=== PATIENT | male | born 1975 | race Caucasian/White ===

== ENCOUNTER 2025-01-22 14:26 | Emergency (ER) | payer OTHER, SELFPAY ==
[2025-01-22 14:27] VITALS: BP 172/114; PULSE 80; RESP 18; TEMP 36.7; O2SAT 97
--- NOTE | 2025-01-22 14:57 | ED.WOUNDLAC ---
HPI - Wound/Laceration General Chief Complaint: Wound/Laceration Stated Complaint: laceration Time Seen by Provider: 01/22/25 14:47 Source: patient Mode of arrival: ambulatory Limitations: no limitations History of Present Illness HPI narrative: this is a 49-year-old male who presents after had an injury with a chainsaw to the distal end of palmar surface of his right index finger causing a laceration and avulsion injury has good range of motion and currently no bleeding no numbness or tingling. Onset (ago): hour(s) Extremity Location: Right: hand ( laceration and avulsion injury to index finger) Place: home Patient tetanus UTD: No ( Declined tetanus) Context: accidental Related Data Allergies Allergy/AdvReac Type Severity Reaction Status Date / Time No Known Allergies Allergy Verified 01/22/25 14:34 Review of Systems Review of Systems: All systems reviewed & are unremarkable except as noted in HPI and below PMFSH Past Medical History Medical History Patient denies medical problems Exam Const: General: healthy appearing, no acute distress and alert Nutritional Appearance: well nourished Orientation/consciousness: patient oriented x3 Resp: Effort & Inspection: normal respiratory effort Auscultation: clear to auscultation bilaterally Cardio: Rate: regular rate Rhythm: regular rhythm Skin: Wounds: wounds noted Neuro: General: patient oriented x3, moves all extremities and no meningeal signs Course Course Emergency Course: area was irrigated and Dermabond placed on the distal end of his right palmar surface of his index finger. Patient declined tetanus vaccine. Vital Signs Vital signs: Vital Signs Temperature 36.7 C 01/22/25 14:27 Pulse Rate 80 01/22/25 14:27 Respiratory Rate 18 01/22/25 14:27 Blood Pressure 172/114 H 01/22/25 14:27 Pulse Oximetry 97 01/22/25 14:27 Oxygen Delivery Room Air 01/22/25 14:27 Temperature 36.7 C 01/22/25 14:27 Pulse Rate 80 01/22/25 14:27 Respiratory Rate 18 01/22/25 14:27 Blood Pressure 172/114 H 01/22/25 14:27 Pulse Oximetry 97 01/22/25 14:27 Oxygen Delivery Room Air 01/22/25 14:27 Procedures Laceration Laceration 1: Date: 01/22/25 Time: 15:00 Site: hand ( Right index finger) Side (If applicable): right Size (cm): 2 Pre-repair: irrigated extensively ====== Skin Level ====== Skin layer closed with: dermabond ====== Subcutaneous Layer ====== ====== Muscle Layer ====== ====== Tendon Layer ====== Critical Care Time Critical Care Time Critical Care Time: No Discharge Plan Discharge Clinical Impression: Laceration, Avulsion of skin Patient Disposition: Home, Self-Care Condition: Stable Instructions: Antibiotic Form, Laceration (ED), Skin Avulsion (ED) Additional Instructions: advised follow-up with primary care physician if symptoms persist or worsen. Patient Language: Portuguese Follow-up/Referrals: UNKNOWN,DOCTOR [Primary Care Provider] - Time of Disposition: 15:01
--- OUTSIDE RECORDS SUMMARY | 2025-01-22 15:12 | XMS_ITS | Encounter Summary ---
Author Organization [facility] Address [facility] [place] [address] Care Team Providers Care Fuel Management Handler Name Role Phone Jose García MD Primary Care Provider Encounter Details Date Type Department Care Team (Late st Contact Info) Description 04/24/2019 Abstract SFL CONVERSION [address] [address] , Generic Conversion, Social History Tobacco Use Types Packs/Day Years Used Date Smoking Tobacco: Never Assessed Sex and Gender Information Value Date Recorded Sex Assigned at Not on file Legal Sex Male 5:51 PM DOCKWORKER Gender Identity Not on file Sexual Orientation Not on file documented as of this encounter Plan of Treatment Not on file documented as of this encounter Visit Diagnoses Not on filedocumented in this encounter Additional Health Concerns Infection Onset Date Last Indicated Resolved Time COVID-19 Rule Out 11/21/2024 11/21/2024 11/21/2024 2:50 PM DOCKWORKER documented as of this encounter Care Teams Fuel Management Handler Relationship Specialty Start Date End Date Jose García MD [address] [facility] [address] [place] [address] PCP - General 04/01/21 documented as of this encounter
--- OUTSIDE RECORDS SUMMARY | 2025-01-22 15:12 | XMS_ITS | Clinical Summary ---
Author Organization [facility] [email or web address] Address [address] [facility] [place] [address] Care Team Providers Care Burlap Bag Sewer Name Role Phone Tex Odom MD Primary Care Provider [phone] Source Comments [facility] [email or web address],non-owned Affiliates and Associated Physician Practices is amultiple site organization consisting of ambulatory clinics and hospital sitesin [place], [place], [place] and [place]. This disclosure is being madepursuant to the Care Everywhere program and may not contain all information available regarding this patient. Last updated 18.[facility] [email or web address] Allergies No known active allergies Medications * Be aware that medications may not be up to date on this document. Alwaysverify current medications with the patient. Medication Sig Dispensed Refills Start Date End Date Status cyclobenzaprine (FLEXERIL) 10 MG tablet Take 1 Tab by mouth 3 times daily as needed for Muscle Spasms. 90 Tab 0 09/26/2011 Active naproxen (NAPROSYN) 500 MG tablet Take 1 Tab by mouth 2 times daily. 180 Tab 3 09/26/2011 Active Active Problems No known active problems Family History Relation Name Status Comments Father over dose Mother Alive Sister Alive Social History Tobacco Use Types Packs/Day Years Used Date Smoking Tobacco: Never Alcohol Use Standard Drinks/Week Comments Yes 0 (1 standard drink = 0.6 oz pur e alcohol) Sex and Gender Information Value Date Recorded Sex Assigned at Not on file Gender Identity Not on file Sexual Orientation Not on file Last Filed Vital Signs Vital Sign Reading Time Taken Comments Blood Pressure 110/70 09/26/2011 9:37 AM SHRIMP PEELER Pulse 60 09/26/2011 9:37 AM SHRIMP PEELER Temperature 36.4 C (97.6 F) 09/26/2011 9:37 AM SHRIMP PEELER Respiratory Rate 20 09/26/2011 9:37 AM SHRIMP PEELER Oxygen Saturation - - Inhaled Oxygen Concentration - - Weight 92.7 kg (204 lb 6.4 oz) 09/26/2011 9:37 A M SHRIMP PEELER Height 182.9 cm (6') 09/26/2011 9:37 AM SHRIMP PEELER Body Mass Index 27.72 09/26/2011 9:37 AM SHRIMP PEELER Plan of Treatment Health Maintenance Due Date Last Done Comments COLOGUARD (AGES 45-75) - COL ON CA SCREENING 1976 COLON MONITORING 1976 COLONOSCOPY - COLON CA SCREENING 1976 CT COLONOGRAPHY - COLON CA SCREENING 1975 Colorectal Cancer Screening 1975 FIT - COLON CA SCREENING 1976 FLEX SIG - COLON CA SCREENING 1976 LIPID TESTING 1976 HIV SCREENING 1991 HEPATITIS C SCREENING 10/21/1994 DTAP/TDAP/TD VACCINES (1 - Tdap) 1995 HEPATITIS B VACCINE (1 of 3 - 19+ 3-dose series) 1995 COVID-19 VACCINE (1 - 2023-2 5 season) 2024 INFLUENZA VACCINE (#1) 2024 DEPRESSION SCREENING 11/17/2024 ZOSTER VACCINE (1 of 2) 2026 HIB VACCINE Aged Out No longer eligi ble based on patient's age to complete this topic HPV VACCINE Aged Out No longer eligi ble based on patient's age to complete this topic MENINGOCOCCAL (Group B) VACCINE Aged Out No longer eligible based on patient's age to complete this topic MENINGOCOCCAL VACCINE Aged Out No jesika caesar eligible based on patient's age to complete this topic PNEUMOCOCCAL VACCINE Aged Out No long er eligible based on patient's age to complete this topic Care Teams Burlap Bag Sewer Relationship Specialty Start Date End Date Tex Odom MD [address] [place] [address] PCP - General 10/08/11
--- OUTSIDE RECORDS SUMMARY | 2025-01-22 15:12 | XMS_ITS ---
Author Organization [facility] [employer] [facility] Address [address] [place] [address] Care Team Providers Care Bank Vault Clerk Name Role Phone Frank Draper Primary Care Provider REASON FOR VISIT Refills MEDICATIONS Medication SIG (Take, Route, Frequency, Duration) Notes Start Date End Date Status Amphetamine-Dextroamphetami ne 15 MG TAKE ONE TABLET BY MOUTH TWICE A DAY 09/23/2024 Active Naproxen 500 MG 1 tablet with food o r milk as needed Orally every 12 hrs for 90 days 07/04/2023 Active valACYclovir HCl 500 MG 1 tablet Orally Once a day for 90 days Active Encounters Encounter Location Date Provider Diagnosis [address] [address] 09/23/2024 Frank Bonny Back pain M54.9 ; HS V infection B00.9 and Attention deficit hyperactivity disorder (ADHD), predominantly inattentive type F90.0 ASSESSMENTS Encounter Date Diagnosis Assessment Notes Treatment Notes Treatment Clinical Notes Section Notes 09/23/2024 Back pain (ICD-10 - M54.9) 09/23/2024 HSV infection (ICD-10 - B00.9) 09/23/2024 Attention deficit hyperactivity disorder (ADHD), predominantly inattentive type (ICD-10 - F90.0) PLAN OF TREATMENT Medication Medication Name Sig Start Date Stop Date Notes Amphetamine-Dextroamphetamin e 15 MG TAKE ONE TABLET BY MOUTH TWICE A DAY 09/23/2024 Naproxen 500 MG 1 tablet with food o r milk as needed Orally every 12 hrs for 90 days 07/04/2023 valACYclovir HCl 500 MG 1 tablet Orally Once a day for 90 days Progress Notes * Malgorzata OLIVIERDOB:1975 ( 48 yo M)Acc No.[id number]:09/23/2024 Patient: Malgorzata OLIVIER :1975 Age:48 Y Sex:Male Address:[address] [place] [address] , [place] [address] * Refills Refill Naproxen Tablet, 500 MG, Orally, 180 Tablet, 1 tablet with food or milk as needed, every 12 hrs, 90 days, Refills=0 Refill valACYclovir HCl Tablet, 500 MG, Orally, 90 Tablet, 1 tablet, Once a day, 90 days, Refills=0 Refill Amphetamine-Dextroamphetamine Tablet, 15 MG, 60 Tablet, TAKE ONE TABLET BY MOUTH TWICE A DAY, Refills=0 * true * Date:
--- OUTSIDE RECORDS SUMMARY | 2025-01-22 15:12 | XMS_ITS ---
Author Organization [facility] [employer] [facility] Address [address] [place] [address] Care Team Providers Care Broke Handler Name Role Phone Frank Draper Primary Care Provider REASON FOR VISIT Refills Encounters Encounter Location Date Provider Diagnosis [address] [address] 09/20/2024 Frank Draper PLAN OF TREATMENT No Information Progress Notes * Malgorzata YANEZDOB:1975 ( 48 yo M)Acc No.[id number]:09/20/2024 Patient: Malgorzata YANEZ :1975 Age:48 Y Sex:Male [address] [place] [address] * true * Date:
--- OUTSIDE RECORDS SUMMARY | 2025-01-22 15:12 | XMS_ITS | Clinical Summary ---
Author Organization [facility] Address [address] [place] [address] Phone Care Team Providers Care Digital Media Director Name Role Phone Unavailable Primary Care Provider Unavailabl e Allergies No known active allergies Medications testosterone cypionate (DEPO-TESTOSTE JIMMY IM) Inject 200 mg by intramuscular injection every 7 days. Active anastrozole (ARIMIDEX) 1 mg tablet Take 0.25 mg by mouth every 7 days. Active valACYclovir (VALTREX) 500 mg tablet TAKE 1 TABLET(500 MG) BY MOUTH DAILY 30 Tablet 3 1 Active Active Problems Problem Noted Date Diagnosed Date HSV infection 10/06/2020 Overview (10/06/2020): On valtrex ppx H/O asbestos exposure 10/06/2020 Family History Medical History Relation Name Comments Hypertension Mother Relation Name Status Comments Mother Social History Tobacco Use Types Packs/Day Years Used Date Smoking Tobacco: Former Smokeless Tobacco: Former Sex and Gender Information Value Date Recorded Sex Assigned at Not on file Legal Sex Male 10:26 PM CDT Gender Identity Not on file Sexual Orientation Not on file Last Filed Vital Signs Vital Sign Reading Time Taken Comments Blood Pressure 112/70 10/06/2020 12:18 PM HYDROLOGIC MODELER Pulse - - Temperature - - Respiratory Rate - - Oxygen Saturation - - Inhaled Oxygen Concentration - - Weight 118.1 kg (260 lb 6 oz) 10/06/2020 12:18 P M HYDROLOGIC MODELER Height 182.9 cm (6') 10/06/2020 12:18 PM HYDROLOGIC MODELER Body Mass Index 35.31 10/06/2020 12:18 PM HYDROLOGIC MODELER Plan of Treatment Health Maintenance Due Date Last Done Comments DTAP/TDAP/TD VACCINES (1 - Tdap) 1995 HEPATITIS B VACCINES (1 of 3 - 19+ 3-dose series) 1995 FIT-DNA Q 3 years 2021 FIT/FOBT Q 1 year 2021 Flex Sig/CT Colonography Q 5 years 2021 INFLUENZA VACCINE (#1) 2024 10/06/2020 COLORECTAL SCREENING 10/04/2034 10/04/2024 Colorectal Cancer Screening 10/04/2034 PNEUMOCOCCAL VACCINE 0-49 YEARS Aged Out No longer eligible based on patient's age to complete this topic Procedures Procedure Name Priority Date/Time Associated Diagnosis Comments COLONOSCOPY REPORT Routine 10/04/2024 8:35 AM HYDROLOGIC MODELER from Last 3 Months or Most Recently Relevant to Health Maintenance Results * COLONOSCOPY REPORT (10/04/2024 8:35 AM HYDROLOGIC MODELER) us Abstract Provider GI PROCEDURE ORDERABLES Edited Result - Final EXTERNAL LAB from Last 3 Months or Most Recently Relevant to Health Maintenance Insurance [employer] CHOICE POS II
--- OUTSIDE RECORDS SUMMARY | 2025-01-22 15:12 | XMS_ITS | Referral Summary ---
Author Organization [facility] [employer] Address [address] [facility] [place] [address] Care Team Providers Care Dishcloth Folder Name Role Phone Tex Odom MD Primary Care Provider [phone] Source Comments [facility] [employer],non-owned Affiliates and Associated Physician Practices is amultiple site organization consisting of ambulatory clinics and hospital sitesin [place], [place], [place] and [place]. This disclosure is being madepursuant to the Care Everywhere program and may not contain all information available regarding this patient. Last updated 18.[facility] [employer] Allergies No known active allergies Medications * [...] Active Active Problems No known active problems Social History Tobacco Use Types Packs/Day Years [...] Comments Blood Pressure 110/70 09/26/2011 9:37 AM ORDER ENTRY CLERK Pulse 60 09/26/2011 9:37 AM ORDER ENTRY CLERK Temperature 36.4 C (97.6 F) 09/26/2011 9:37 AM ORDER ENTRY CLERK Respiratory Rate 20 09/26/2011 9:37 AM ORDER ENTRY CLERK Oxygen Saturation - - Inhaled Oxygen Concentration - - Weight 92.7 kg (204 lb 6.4 oz) 09/26/2011 9:37 A M ORDER ENTRY CLERK Height 182.9 cm (6') 09/26/2011 9:37 AM ORDER ENTRY CLERK Body Mass Index 27.72 09/26/2011 9:37 AM ORDER ENTRY CLERK Plan of Treatment Not on file Care Teams Dishcloth Folder Relationship Specialty Start Date End Date Tex Odom MD [address] [place] [address] PCP - General 10/08/11
--- OUTSIDE RECORDS SUMMARY | 2025-01-22 15:12 | XMS_ITS | Patient Health Summary ---
Author Organization [facility] [employer] Address [address] [facility] [place] [address] Care Team Providers Care Project Manager Process Development Name Role Phone Tex Odom MD Primary Care Provider [phone] Note from [facility],non-owned Affiliates and Associated Physician Practices is amultiple site organization consisting of ambulatory clinics and hospital sitesin [place], [place], [place] and [place]. This disclosure is being madepursuant to the Care Everywhere program and may not contain all information available regarding this patient. Last updated 18.[facility] [employer] Allergies No known active allergies Medications * Be aware that medications may not be up to date on this document. Alwaysverify current medications with the patient. * cyclobenzaprine (FLEXERIL) 10 MG tablet(Started 09/26/2011) Take 1 Tab by mouth 3 times daily as needed for Muscle Spasms. * naproxen (NAPROSYN) 500 MG tablet(Started 09/26/2011) Take 1 Tab by mouth 2 times daily. 3 refills left Active Problems No known active problems Social [...] Comments Blood Pressure 110/70 09/26/2011 9:37 AM SPEECH COMMUNICATION PROFESSOR Pulse 60 09/26/2011 9:37 AM SPEECH COMMUNICATION PROFESSOR Temperature 36.4 C (97.6 F) 09/26/2011 9:37 AM SPEECH COMMUNICATION PROFESSOR Respiratory Rate 20 09/26/2011 9:37 AM SPEECH COMMUNICATION PROFESSOR Oxygen Saturation - - Inhaled Oxygen Concentration - - Weight 92.7 kg (204 lb 6.4 oz) 09/26/2011 9:37 A M SPEECH COMMUNICATION PROFESSOR Height 182.9 cm (6') 09/26/2011 9:37 AM SPEECH COMMUNICATION PROFESSOR Body Mass Index 27.72 09/26/2011 9:37 AM SPEECH COMMUNICATION PROFESSOR Care Teams Project Manager Process Development Relationship Specialty Start Date End Date Tex Odom MD [address] [place] [address] PCP - General 10/08/11
--- OUTSIDE RECORDS SUMMARY | 2025-01-22 15:12 | XMS_ITS ---
Author Organization [facility] [employer] [facility] Address [address] [place] [address] Care Team Providers Care Medical Office Assistant Instructor Name Role Phone Frank Draper Primary Care Provider [phone] ALLERGIES No Known Allergies REASON FOR VISIT BP not controlled MEDICATIONS Medication SIG (Take, Route, Frequency, Duration) Notes Start Date End Date Status Amphetamine-Dextroamphet amine 15 MG TAKE ONE TABLET BY MOUTH TWICE A DAY 06/15/2024 Active Lisinopril 20 MG 1 tablet Orally Once a day for 90 days 02/12/2024 Active Naproxen 500 MG 1 tablet with food or milk as needed Orally every 12 hrs for 50 days 07/04/2023 Active valACYclovir HCl 500 MG 1 tablet Orally Once a day for 90 days Active Lisinopril-hydroCHLOROth iazide 20-12.5 MG 1 tablet Orally Once a day for 90 days 04/27/2024 Active Testosterone Cypionate 200 MG/ML 1 ml Intramuscular takes .5 on Friday and .5 on Friday Active Cyclobenzaprine HCl 10 MG 1 tablet at bedtime as needed Orally Once a day for 30 day(s) 11/24/2023 Active Amoxicillin 500 MG 1 capsule Orally every 8 hrs for 5 days 03/02/2024 Active methylPREDNISolone 4 MG as directed Oral ly as directed for 6 days 04/04/2023 Not-Taking Adderall XR 10 MG 1 capsule in the morning Orally Once a day for 30 days 01/10/2023 Not-Taking Vitamin C Active Anastrozole 1 MG 1 tablet Orally Once a day takes .25 of a tablet twice a week Active Co Q 10 Active Vitamin D Active Chorionic Gonadotropin 5000 UNIT as directed Intramuscular .5 ml 2 days a week Active Losartan Potassium-HCTZ 50-12.5 MG 1 tablet Orally Once a day for 90 days 09/20/2024 Active Fish Oil Active SOCIAL HISTORY Tobacco Use: Social History Observation Description Date Details (start date - stop date) Never Smoker NA - NA Sex Assigned At : Social History Observation Description Sex Assigned At Unknown Tobacco Use/Smoking Question Answer Notes Are you a nonuser Education Question Answer Notes Level of education some college Household Question Answer Notes Marital Status single VITAL SIGNS Height 71.6 in 09/20/2024 No vitals for phone visit Encounters Encounter Location Date Provider Diagnosis [place] [address] [place] [address] 09/20/2024 Frank Draper Essential hypertension I10 ASSESSMENTS Encounter Date Diagnosis Assessment Notes Treatment Notes Treatment Clinical Notes Section Notes 09/20/2024 Essential hypertension (ICD-10 - I10) Discussed with patient that lisinopril itself does not have snake venom (the first NURIA inhibitor captopril did intially), and it is a generally safe medication that is protective for the kidneys. If it is not working well and he has concerns anyway, can try losartan instead. Unclear if he has been taking the tablet with HCTZ, but will send this as losartan/HCTZ 50-12.5 mg. He should keep monitoring his BP levels and report back in about 2-3 weeks. Can adjust if needed. All questions answered. PLAN OF TREATMENT Medication Medication Name Sig Start Date Stop Date Notes Losartan Potassium-HCTZ 50-1 2.5 MG 1 tablet Orally Once a day for 90 days 09/20/2024 Next Appt Details Follow Up: 3 Weeks, Reason: HTN follow up Progress Notes * RENATAMalgorzata ANGULODOB:1975 ( 48 yo M)Acc No.[id number]:09/20/2024 Patient: Malgorzata YANEZ Provider: Frank Draper MD :1975 Age:48 Y Sex:Male Date:09/20/2024 Address:[address] , [facility] Subjective: * Chief Complaints: * BP not controlled * HPI: *: Patient called the office stating his blood pressures were still elevated (140s/90s) and he was wanting to go back to the medication he was one before lisinopril since he had heard bad things about lisinopril . He was first started on medication at his CPE in January, having not wanted to take medication for this for a long time. The only two blood pressure medications prescribed to him have been lisinopril 20 mg and lisinopril/HCTZ 20-12.5 mg. Both of these contain lisinopril; he has not been on anything else here. His last refill when I was out of the office was sent as just lisinopril, though he had a 90 day supply of the combination medicine sent in April. When speaking with him, he did not have his bottles with him, so he was not sure which one he was taking. He was concerned after hearing lisinopril had snake venom in it. When he first started taking it, he had a mild cough. When he got it next refill, the cough started going away (though he was still on a medicine with lisinopril). * Medical History: * Surgical History: Denies Past Surgical History * Hospitalization/Major Diagno stic Procedure: Dilantin overdose as a child * Family History: Father: , Drug overdose (likely methadone). Mother: alive 71 yrs, Blood disease, no diagnosis after bone marrow biopsy, doing better. Sister 1: alive 49 yrs. 1 sister(s) - healthy. . 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 Yes Drug(s) used marijuana Are you still using? uses daily * Medications: TakingFish Oil Co Q 10 Vitamin D Vitamin C Anastrozole 1 MG Tablet 1 tablet Orally Once a day Chorionic Gonadotropin 5000 UNIT Solution Reconstituted as directed Intramuscular Testosterone Cypionate 200 MG/ML Solution 1 ml Intramuscular Cyclobenzaprine HCl 10 MG Tablet 1 tablet at bedtime as needed Orally Once a day Amoxicillin 500 MG Capsule 1 capsule Orally every 8 hrs Lisinopril-hydroCHLOROthiazide 20-12.5 MG Tablet 1 tablet Orally Once a day Naproxen 500 MG Tablet 1 tablet with food or milk as needed Orally every 12 hrs valACYclovir HCl 500 MG Tablet 1 tablet Orally Once a day Amphetamine-Dextroamphetamine 15 MG Tablet TAKE ONE TABLET BY MOUTH TWICE A DAY Lisinopril 20 MG Tablet 1 tablet Orally Once a day Taking Fish Oil Taking Co Q 10 Taking Vitamin D Taking Vitamin C Taking Anastrozole 1 MG Tablet 1 tablet Orally Once a day Taking Chorionic Gonadotropin 5000 UNIT Solution Reconstituted as directed Intramuscular Taking Testosterone Cypionate 200 MG/ML Solution 1 ml Intramuscular Taking Cyclobenzaprine HCl 10 MG Tablet 1 tablet at bedtime as needed Orally Once a day Taking Amoxicillin 500 MG Capsule 1 capsule Orally every 8 hrs Taking Lisinopril-hydroCHLOROthiazide 20-12.5 MG Tablet 1 tablet Orally Once a day Taking Naproxen 500 MG Tablet 1 tablet with food or milk as needed Orally every 12 hrs Taking valACYclovir HCl 500 MG Tablet 1 tablet Orally Once a day Taking Amphetamine-Dextroamphetamine 15 MG Tablet TAKE ONE TABLET BY MOUTH TWICE A DAY Taking Lisinopril 20 MG Tablet 1 tablet Orally Once a day Not-TakingmethylPREDNISolone 4 MG Tablet Therapy Pack as directed Orally as directed Adderall XR 10 MG Capsule Extended Release 24 Hour 1 capsule in the morning Orally Once a day Not-Taking methylPREDNISolone 4 MG Tablet Therapy Pack as directed Orally as directed Not-Taking Adderall XR 10 MG Capsule Extended Release 24 Hour 1 capsule in the morning Orally Once a day * Allergies: N.K.A.no[Allergies Verified] Objective: * Vitals: Ht:71.6in No vitals for phone visit. * Examination: General Examination *: No exam for phone visit. Assessment: * Assessment: 1. Essential hypertension - I10 (Primary) Plan: * Treatment: * Procedure Codes: * Follow Up: 3 Weeks (Reason: HTN follow up) * Billing Information: * Visit Code: [id number] PHN E/M by PHYS 11-20 MIN. * Procedure Codes: * Sign off status: Completed true * Provider: Frank Draper MD Date: 09/20/2024 History and Physical Notes * Examination Category Sub-Category Detail Notes Category Not es General Examination * No exa m for phone visit
--- OUTSIDE RECORDS SUMMARY | 2025-01-22 15:12 | XMS_ITS | Clinical Summary ---
Author Organization [facility] Address [address] [place] [address] Care Team Providers Care Lamination Spinner Name Role Phone Jose García MD Primary Care Provider Allergies No known active allergies Medications testosterone 100 MG pellet 200 mg by Implant route once. Active Chorionic Gonadotropin (HCG) [address] units Recon Soln Active anastrozole 1 MG tablet Take 0.25 mg by mouth daily. Active valACYclovir 500 MG tablet Take 500 mg by mouth 2 (two) times daily. Active Active Problems No known active problems Encounters Date Type Department Care Team Description 11/21/2024 2:27 PM FRENCH INSTRUCTOR - 11/21/2024 3:35 PM FRENCH INSTRUCTOR Emergency [facility] [address] [place] [address] Jarred Willard DO Sore Throat Discharge Disposition: Home or Self Care (Routine Discharge) 11/21/2024 Travel from Last 3 Months Social History Tobacco Use Types Packs/Day Years Used Date Smoking Tobacco: Some Days Cigarettes Cigars Smokeless Tobacco: Never Tobacco Cessation:Ready to Q uit: Not Asked; Counseling Given: Not Answered Alcohol Use Standard Drinks/Week Comments Yes 0 (1 standard drink = 0.6 oz pur e alcohol) Sex and Gender Information Value Date Recorded Sex Assigned at Not on file Legal Sex Male 5:51 PM FRENCH INSTRUCTOR Gender Identity Not on file Sexual Orientation Not on file Last Filed Vital Signs Vital Sign Reading Time Taken Comments Blood Pressure 184/120 11/21/2024 2:16 PM FRENCH INSTRUCTOR Pulse 75 11/21/2024 2:16 PM FRENCH INSTRUCTOR Temperature 35.8 C (96.4 F) 11/21/2024 2:16 PM FRENCH INSTRUCTOR Respiratory Rate 18 11/21/2024 2:16 PM FRENCH INSTRUCTOR Oxygen Saturation 98% 11/21/2024 2:16 PM FRENCH INSTRUCTOR Inhaled Oxygen Concentration - - Weight 124.3 kg (274 lb) 11/21/2024 2:16 PM FRENCH INSTRUCTOR Height 182.9 cm (6') 11/21/2024 2:16 PM FRENCH INSTRUCTOR Body Mass Index 37.16 11/21/2024 2:16 PM FRENCH INSTRUCTOR Plan of Treatment Health Maintenance Due Date Last Done Comments Colorectal Cancer Screening Colonoscopy (10 Years) 1976 Annual Physical 1979 Pneumococcal Vaccine: Pediatrics (0 to 5 Years) and At-Risk Patients (6 to 64 Years) (1 of 2 - PCV) 1982 Hepatitis C 1994 DTaP, Tdap and Td Vaccines (1 - Tdap) 1995 06/17/1981, 04/17/1978, 02/15/1978, Additional history exists Hepatitis B Vaccines (1 of 3 - 19+ 3-dose series) 1995 COVID-19 Vaccine ( season) 2024 Influenza Adult (#1) 2024 Meningococcal B Vaccine Aged Out No l onger eligible based on patient's age to complete this topic Meningococcal Vaccine Aged Out No jesika caesar eligible based on patient's age to complete this topic RSV Immunizations Under 20 Months Aged Out No longer eligible based on patient's age to complete this topic Procedures Procedure Name Priority Date/Time Associated Diagnosis Comments STREP A RAPID STAT 11/21/2024 2:45 PM FRENCH INSTRUCTOR from Last 3 Months Results * STREP A RAPID (11/21/2024 2:45 PM FRENCH INSTRUCTOR) SPECIMEN SOURCE THROAT 11/21/2024 2:45 PM FRENCH INSTRUCTOR [facility] RAPID STREP TEST NEGATIVE NEGATIVE 11/21/2024 2:58 PM FRENCH INSTRUCTOR [facility] STRUCTURE OF ANTERIOR PORTION OF NECK / Unknown 11/21/2024 2:45 PM FRENCH INSTRUCTOR Jarred Willard DO MICROBIOLOGY - GENERAL ORDERABLE S Final Result [facility] [address] [place] [address], from Last 3 Months Insurance [employer] Care Teams Lamination Spinner Relationship Specialty Start Date End Date Jose García MD [address] [facility] [address] [place] [address] PCP - General 04/01/21
--- OUTSIDE RECORDS SUMMARY | 2025-01-22 15:12 | XMS_ITS | Patient Health Record ---
Author Organization [facility] [employer] [facility] Address [address] [place] [address] Care Team Providers Care Yardage Control Clerk Name Role Phone Frank estes Primary Care Provider Lui Howell [phone] ALLERGIES No Known Allergies RESULTS Component Value Reference Range Notes Sex Horm Binding Glob, Serum ([id number]) Reviewed date:02/13/2024 11:29:33 AM Interpretation: Performing Lab:[facility] [id number], Phone - [phone], Director - [facility] Notes/Report: Clinical Information:SRC:Blood Sex Horm Binding Glob, Serum 18.0 16.5-55.9 nm ol/L Testosterone,Free and Total ([id number]) Reviewed date:02/16/2024 11:40:05 AM Interpretation: Performing Lab:[facility], [address] [place] [id number], Phone - [phone], Director - Drewi Notes/Report: Clinical Information:SRC:Blood Testosterone 1032 264-916 ng/dL Adult male reference interval is based on a population of healthy nonobese males (BMI <30) between 19 and 39 years old. Robin et.al. JCEM 2017,102;6705-2578. PMID: 05837575. Free Testosterone(Direct) 22.9 6.8-21.5 pg/mL DHEA-Sulfate ([id number]) Reviewed date:02/13/2024 11:29:29 AM Interpretation: Performing Lab:[facility], [address] [place] [id number], Phone - [phone], Director - PhDHai Notes/Report: Clinical Information:SRC:Blood DHEA-Sulfate 224.0 71.6-375.4 ug/dL Estradiol ([id number]) Reviewed date:02/13/2024 11:29:21 AM Interpretation: Performing Lab:[facility] [address] [id number], Phone - [phone], Director - Masood Notes/Report: Clinical Information:SRC:Blood Estradiol 35.5 7.6-42.6 pg/mL Sav ECLIA m ethodology Comp. Metabolic Panel (14) ( CMP)([id number]) Reviewed date:02/13/2024 11:29:04 AM Interpretation: Performing Lab:[facility] [address] [id number], Phone - [phone], Director - [facility] Notes/Report: Clinical Information:SRC:Blood Glucose 100 70-99 mg/dL BUN 13 6-24 mg/dL Creatinine 0.97 0.76-1.27 mg/dL eGFR 97 >59 mL/min/1.73 BUN/Creatinine Ratio 13 9-20 Sodium 139 134-144 mmol/L Potassium 4.9 3.5-5.2 mmol/L Chloride 100 96-106 mmol/L Carbon Dioxide, Total 22 20-29 mmol/L Calcium 9.6 8.7-10.2 mg/dL Protein, Total 7.2 6.0-8.5 g/dL Albumin 4.8 4.1-5.1 g/dL Globulin, Total 2.4 1.5-4.5 g/dL A/G Ratio 2.0 1.2-2.2 Bilirubin, Total 0.5 0.0-1.2 mg/dL Alkaline Phosphatase 66 44-121 IU/L AST (SGOT) 33 0-40 IU/L ALT (SGPT) 55 0-44 IU/L Hemoglobin A1c (S/O) ([id number] ) Reviewed date:02/13/2024 11:28:54 AM Interpretation:5.8% Performing Lab:[facility] [address] [id number], Phone - [phone], Director - Masood Notes/Report: Clinical Information:SRC:Blood Hemoglobin A1c 5.8 4.8-5.6 % . Prediabetes: 5.7 - 6.4 Diabetes: >6.4 Glycemic control for adults with diabetes: <7.0 TSH ([id number]) Reviewed date:02/13/2024 11:29:12 AM Interpretation: Performing Lab:[facility], [address] [place] [id number], Phone - [phone], Director - [facility] Notes/Report: Clinical Information:SRC:Blood TSH 1.500 0.450-4.500 uIU/mL CBC With Differential/Platel et ([id number]) Reviewed date:02/13/2024 11:29:09 AM Interpretation: Performing Lab:[facility], [address] [place] [id number], Phone - [phone], Director - [facility] Notes/Report: Clinical Information:SRC:Blood WBC 6.3 3.4-10.8 x10E3/uL RBC 5.56 4.14-5.80 x10E6/uL Hemoglobin 17.6 13.0-17.7 g/dL Hematocrit 51.2 37.5-51.0 % MCV 92 79-97 fL MCH 31.7 26.6-33.0 pg MCHC 34.4 31.5-35.7 g/dL RDW 12.3 11.6-15.4 % Platelets 260 150-450 x10E3/uL Neutrophils 62 Not Estab. % Lymphs 29 Not Estab. % Monocytes 8 Not Estab. % Eos 1 Not Estab. % Basos 0 Not Estab. % Immature Cells Neutrophils (Absolute) 3.9 1.4-7.0 x10E3/uL Lymphs (Absolute) 1.8 0.7-3.1 x10E3/uL Monocytes(Absolute) 0.5 0.1-0.9 x10E3/uL Eos (Absolute) 0.1 0.0-0.4 x10E3/uL Baso (Absolute) 0.0 0.0-0.2 x10E3/uL Immature Granulocytes 0 Not Estab. % Immature Grans (Abs) 0.0 0.0-0.1 x10E3/uL NRBC Hematology Comments: PSA Prostate-Specific Antige n, Serum([id number]) Reviewed date:02/13/2024 11:29:15 AM Interpretation: Performing Lab:[facility] [address] [id number], Phone - [phone], Director - Masood Notes/Report: Clinical Information:SRC:Blood Prostate Specific Ag 1.5 0.0-4.0 ng/mL Sav ECLIA methodology. . According to the [place] [employer], Serum PSA should decrease and remain at undetectable levels after radical prostatectomy. The AUA defines biochemical recurrence as an initial PSA value 0.2 ng/mL or greater followed by a subsequent confirmatory PSA value 0.2 ng/mL or greater. Values obtained with different assay methods or kits cannot be used interchangeably. Results cannot be interpreted as absolute evidence of the presence or absence of malignant disease. Lipid Panel w/ Chol/HDL Rati o ([id number]) Reviewed date:02/13/2024 11:28:39 AM Interpretation:LDL 124, HDL 55, TG 60 Performing Lab:[facility] [address] [id number], Phone - [phone], Director - Masood Notes/Report: Clinical Information:SRC:Blood Cholesterol, Total 190 100-199 mg/dL Triglycerides 60 0-149 mg/dL HDL Cholesterol 55 >39 mg/dL VLDL Cholesterol Dmitriy 11 5-40 mg/dL LDL Chol Calc ([facility]) 124 0-99 mg/dL Comment: T. Chol/HDL Ratio 3.5 0.0-5.0 ratio T. Chol/HDL Ratio Men Women 1/2 Avg.Risk 3.4 3.3 Avg.Risk 5.0 4.4 2X Avg.Risk 9.6 7.1 3X Avg.Risk 23.4 11.0 REASON FOR REFERRAL No Information MEDICATIONS Medication SIG (Take, Route, Frequency, Duration) Notes Start Date End Date Status Amphetamine-Dextroamphet amine 15 MG TAKE ONE TABLET BY MOUTH TWICE A DAY 09/23/2024 Active Naproxen 500 MG 1 tablet with food or milk as needed Orally every 12 hrs for 90 days 07/04/2023 Active valACYclovir HCl 500 MG 1 tablet Orally Once a day for 90 days Active Vitamin C Active Anastrozole 1 MG 1 tablet Orally Once a day takes .25 of a tablet twice a week Active Lisinopril 20 MG 1 tablet Orally Once a day for 90 days 02/12/2024 Active Co Q 10 Active Vitamin D Active Losartan Potassium-HCTZ 50-12.5 MG 1 tablet Orally Once a day for 90 days 09/20/2024 Active Chorionic Gonadotropin 5000 UNIT as directed Intramuscular .5 ml 2 days a week Active Testosterone Cypionate 200 MG/ML 1 ml Intramuscular takes .5 on Friday and .5 on Friday Active Cyclobenzaprine HCl 10 MG 1 tablet at bedtime as needed Orally Once a day for 30 day(s) 11/24/2023 Active Amoxicillin 500 MG 1 capsule Orally every 8 hrs for 5 days 03/02/2024 Active Fish Oil Active Lisinopril-hydroCHLOROth iazide 20-12.5 MG 1 tablet Orally Once a day for 90 days 04/27/2024 Active methylPREDNISolone 4 MG as directed Oral ly as directed for 6 days 04/04/2023 Not-Taking Adderall XR 10 MG 1 capsule in the morning Orally Once a day for 30 days 01/10/2023 Not-Taking SOCIAL HISTORY Tobacco Use: Social History Observation Description Date Details (start date - stop date) Never Smoker NA - NA Sex Assigned At : Social History Observation Description Sex Assigned At Unknown Tobacco Use/Smoking Question Answer Notes Are you a nonuser Education Question Answer Notes Level of education some college Household Question Answer Notes Marital Status single PROBLEMS Problem Type ICD Code Onset Dates Problem Status W/U Status Risk SNOMED Code Notes Problem Hypogonadism in male (E29.1) Active confirmed 42093650 Problem Inattention (R41.840) Active confirmed 15723388 Problem Attention deficit hyperactivity disorder (ADHD), predominantly inattentive type (F90.0) Active confirmed 75099870 Problem Asbestos exposure (Z77.090) Active confirmed History of asbestos exposure (157172404) VITAL SIGNS Heart Rate 98 /min 02/12/2024 Repeat BP 158/1 16 Temperature 98.3 degrees Fahrenheit 02/12/2024 Repe at BP 158/116 Respiratory Rate 20 /min 02/12/2024 Repeat BP 1 58/116 Oximetry 98 % 02/12/2024 Repeat BP 158/1 16 Blood pressure diastolic 120 mm Hg 02/12/2024 Rep eat BP 158/116 Weight-kg 126.01 kg 02/12/2024 Repeat BP 158/1 16 Height 71.6 in 09/20/2024 No vitals for p summer visit Blood pressure systolic 158 mm Hg 02/12/2024 Repe at BP 158/116 Weight 277.8 lbs 02/12/2024 Repeat BP 158/1 16 BMI 38.09 02/12/2024 Repeat BP 158/1 16 Encounters Encounter Location Date Provider Diagnosis [place] [address] [place] [address] 01/27/2024 Frank Draper Attention deficit hyperactivity disorder (ADHD), predominantly inattentive type F90.0 [place] [address] [place] [address] 02/12/2024 Frank Draper Encounter for [facility] examination Z00.00 ; Attention deficit hyperactivity disorder (ADHD), predominantly inattentive type F90.0 ; Essential hypertension I10 ; Asbestos exposure Z77.090 ; Hypogonadism in male E29.1 ; Back pain M54.9 and HSV infection B00.[address] [place] [address] 09/20/2024 Frank Draper Essential hypertensi on I10 [address] [place] [address] 03/02/2024 Frank Draper [address] [place] [address] 03/23/2024 Frank Draper [address] [place] [address] 04/27/2024 Frank Draper Essential hypertensi on I10 and Attention deficit hyperactivity disorder (ADHD), predominantly inattentive type F90.[address] [place] [address] 05/06/2024 Frank Draper [address] [place] [address] 05/06/2024 [address] Draper [address] [place] [address] 06/15/2024 Lui Howell Back pain M54.9 ; HS V infection B00.9 ; Attention deficit hyperactivity disorder (ADHD), predominantly inattentive type F90.0 and Essential hypertension I10 [place] [address] [place] [address] 09/20/2024 Frank Draper [place] [id number] [place] [address] 09/23/2024 Frank Draper Back pain M54.9 ; HS V infection B00.9 and Attention deficit hyperactivity disorder (ADHD), predominantly inattentive type F90.0 ASSESSMENTS Encounter Date Diagnosis Assessment Notes Treatment Notes Treatment Clinical Notes Section Notes 01/27/2024 Attention deficit hyperactivity disorder (ADHD), 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 This was refilled earlier this month. Can follow up in six months 02/12/2024 Encounter for general health examination (ICD-10 - Z00.00) Due for routine labs; ordered as noted. Notify with results by call when available. Will calculate ASCVD risk based on lipid values from today's labs. Declines TDaP or any vaccines. Still trying to get colonoscopy arranged for him. He has a form he forgot to bring where his union will contribute $100 to his health account if he has an annual exam. 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 Does not need a refill now. Will need office visit at six months 06/15/2024 Back pain (ICD-10 - M54.9) 09/20/2024 Essential hypertension (ICD-10 - I10) Discussed [...] Can adjust if needed. All questions answered. 09/23/2024 Back pain (ICD-10 - M54.9) 04/27/2024 Essential hypertension (ICD-10 - I10) 04/27/2024 Attention deficit hyperactivity disorder (ADHD), predominantly inattentive type (ICD-10 - F90.0) 09/23/2024 HSV infection (ICD-10 - B00.9) 06/15/2024 HSV infection (ICD-10 - B00.9) 02/12/2024 Essential hypertension (ICD-10 - I10) DASH Diet: Care Instructions material was printed Had long discussion with patient regarding his blood pressure. He has been getting high levels at home and his levels are high here as well, to the point that medication is indicated. He is very hesitant to take medication, as he wants to lower his pressures by diet, exercise, and losing weight. Discussed that exercise itself increases blood pressure, and if the starting point is 160/120, raising blood pressure higher than that is not advised at all. Particularly emphasized risk for stroke with HTN. Provided information on the DASH diet. He is willing to try some lisinopril now, in the hopes he can come off of this in the future. Start at 20 mg given his levels here, and if he starts to notice lower BPs at home, he can cut this in half 02/12/2024 Asbestos exposure (ICD-10 - Z77.090) Due for annual screens for asbestos exposure. 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 Discussed that when these come back, he can view them on the portal but if he has any questions about the results, he will need to contact the provider who wants them checked 02/12/2024 Back pain (ICD-10 - M54.9) Requesting refill on Naprosyn, which was provided 02/12/2024 HSV infection (ICD-10 - B00.9) Requesting refill on valacyclovir, which was provided 02/12/2024 Other Received labs the following day; called and reviewed results with patient. Lipids with cholesterol 190, LDL 124, HDL 55, TG 60. ASCVD risk was calculated to be at 3.0%. This has previously been around 1.5%; discussed this is largely due to his elevated BP, which is being addressed. A1C of 5.8% puts him in the pre-diabetes range. While he does not have diabetes now, this is essentially a warning that diabetes could develop in the future without changes. Recommended minimizing simple sugars, as well as white breads/rice/pas ta/potatoes. Whole grain breads would be a better choices, and checking the ingredients for enriched is recommended, as these products can lead to glucose spikes and insulin resistance. Regular exercise can also be very beneficial in keeping blood sugars regulated. He is already using fiber. CMP with mild elevation in ALT to 55. He knows he needs to lose weight and exercise, which will help with all of these findings. Will want to follow up his BP in three months. Other labs for Petr are normal; he can access these on the portal and show them to the provider he sees there. All questions answered PLAN OF TREATMENT Pending Test Test Name Order Date Colonoscopy 01/20/2024 Pulmonary Function Test 10/26/2021 Pulmonary Function Test 12/17/2022 Pulmonary Function Test 02/12/2024 CT Chest w/o Contrast 02/12/2024 CT Chest w/o Contrast 12/17/2022 XR CHEST - 2 VIEWS 12/23/2022 Insurance Providers Payer Name Payer Address Payer Phone Subscriber Number Group Number Insured Name Patient Relationship to Insured Coverage Start Date Coverage End Date [employer]OHNSON [address] [place] [phone] [id number] Malgorzata Olivier Self - patient is the insured MEDICAL (GENERAL) HISTORY Medical History History ICD Code Hypogonadism HSV ADHD Hospitalization History Reason Date(Month/Year) Dilantin overdose as a child
--- OUTSIDE RECORDS SUMMARY | 2025-01-22 15:12 | XMS_ITS | Data Portability ---
Author Organization [facility], Buck Esparza Address [address] [place] [address] Assessment No assessment recorded. Plan of Treatment Reminders Order Date Submit Date Provider Last Modified By Organization Details Last Modified Time Details Appointments None record ed. Lab None record ed. Referral None record ed. Procedures None record ed. Surgeries None record ed. Imaging None record ed. Medication Orders None record ed. Patient TargetsNo targets recorded. Patient InstructionsNo instructions recorded. Reason for Referral None Reported. Problems Name Problem SNOMED Code Status Onset Date Resolution Date Notes Provider Name and Address Organization Details Recorded Time History of asbestos exposure 760174627 Active Descriptio n: Asbestos exposure Not Available [facility] 4 16:57:33 Attention deficit hyperacti vity disorder, predomina ntly inattenti ve type 05034984 Active Descriptio n: Attention deficit hyperactiv ity disorder (ADHD), predominan tly inattentiv e type Not Available [facility] 4 16:57:33 Male hypogonad ism 50846193 Active Descriptio n: Hypogonadi sm in male Not Available [facility] 4 16:57:33 Inattenti on 74918954 Active Descriptio n: Inattentio n Not Available [facility] 4 16:57:33 Herpes simplex 68354962 Active 2024 [address], [place], [address] , [facility] [place] 5 16:19:55 Problem Notes None recorded. Medical Equipment None Reported. Medications Name Sig Start Date Stop Date Status Note LastModified by Organization Details LastModified Time cyclobenz aprine 10 mg tablet 1 tablet at bedtime as needed Once a day , Orally 2023 active Encounte r Date: 02/12/20 24 Status: 'Taking' ; Not Available Not Available Not Available amoxicill in 500 mg capsule 1 capsule every 8 hrs , Orally 2023 active Encounte r Date: 09/20/20 24Status : 'Taking' ; Not Available Not Available Not Available anastrozo le 1 mg tablet 1 tablet Once a day , Orally active Encounte r Date: 02/12/20 24 ; takes .25 of a tablet twice a week Status: 'Taking' ; Not Available Not Available Not Available lisinopri l 20 mg-hydroc hlorothia zide 12.5 mg tablet 1 tablet Once a day , Orally 01/03 completed Encounte r Date: 09/20/20 24Status : 'Taking' ; Not Available Not Available Not Available valacyclo vir 1 gram tablet take 1/2 tablet daily 2024 active Not Available Not Available Not Avai lable lisinopri l 20 mg tablet 1 tablet Once a day , Orally 01/03 completed Encounte r Date: 09/20/20 24Status : 'Taking' ; Not Available Not Available Not Available dextroamp hetamine- amphetami ne 15 mg tablet TAKE ONE TABLET BY MOUTH TWICE A DAY 2023 active Encounte r Date: 09/23/20 24Status : 'Refill' ; Not Available Not Available Not Available Adderall XR 10 mg capsule,e xtended release 1 capsule in the morning Once a day , Orally 2022 active Encounte r Date: 02/12/20 24 Status: 'Not-Heath ing'; Not Available Not Available Not Available testoster one cypionate 200 mg/mL intramusc ular oil 1 ml , Intramus cular active Encounte r Date: 02/12/20 24 ; takes .5 on Friday and .5 on Friday Status: 'Taking' ; Not Available Not Available Not Available methylpre dnisolone 4 mg tablets in a dose pack as directed as directed , Orally 2022 active Encounte r Date: 02/12/20 24 Status: 'Not-Heath ing'; Not Available Not Available Not Available losartan 50 mg-hydroc hlorothia zide 12.5 mg tablet 1 tablet Once a day , Orally 2023 active Encounte r Date: 09/20/20 24Status : 'Start'; Not Available Not Available Not Available Vitamin C active Encounte r Date: 02/12/20 Medicati onName: 'Vitamin C'; ConceptT ype: 'NDC'; Status: 'Taking' ; Not Available Not Available Not Available Fish Oil active Encounte r Date: 02/12/20 Medicati onName: 'Fish Oil'; ConceptT ype: 'NDC'; Status: 'Taking' ; Not Available Not Available Not Available Vitamin D active Encounte r Date: 02/12/20 Medicati onName: 'Vitamin D'; ConceptT ype: 'NDC'; Status: 'Taking' ; Not Available Not Available Not Available Co Q 10 active Encounte r Date: 02/12/20 Medicati onName: 'Co Q 10'; ConceptT ype: 'NDC'; Status: 'Taking' ; Not Available Not Available Not Available Vitals Date Recorded Body height Provider Name an d Address Organization Details Last Updated DateTime 01/03/2025 181.864 cm Jaquelin Perez [place] [facility] 01/03/20 16:30:45 Social History Question Answer Notes LastModified by Organizat ion Details LastModified Time Tobacco Smoking Status Never Smoker SocialHistory Question: 'Tobacco Use/Smoking'; SocialHistory Response: 'Are you a: nonuser'; Not Available [facility] 08/22/2024 04:04:01 What Is The Highest Grade Or Level Of School You Have Completed Or The Highest Degree You Have Received? [id number] SocialHistory Question: 'Education'; SocialHistory Response: 'Currently In School No, Level Of Education Some College'; [email or web address] Information not available 08/22/2024 What Is Your Relationship Status? Single SocialHistory Question: 'Household'; SocialHistory Response: 'Marital Status Single, Children No, Pets Dog(s)'; [email or web address] Information not available 08/22/2024 Sex: Unknown Functional Status None recorded. Mental Status None recorded. Family History Nothing Reported Notes:*Relative: Sister*Prob courtney: alive 49 yrsRelative: 'Sister 1'; *Relative: Mother*Problem: alive 71 yrs, Blood disease, no diagnosis after bone marrow biopsy, doing better *Relative: Father*Problem: , Drug overdose (likely methadone) *Relative: Unspecified Relation*Problem: 1 sisters(s) - healthy Medical History No medical history recorded. Past Encounters Encounter ID Performer Location Encounter Start Date Encounter Closed Date Diagnosis/Indication Diagnosis SNOMED-CT Code Diagnosis ICD10 Code Diagnosis Note [id number] [facility] [address] [place] [address] 01/03/2025 16:28:30 01/03/2025 16:32:14 Health Concerns Section Related Observation LastModified by Organization Detai ls LastModified Time None Recorded Concern Status LastModified by Organization Details LastModified Time None Recorded Advance Directives Directive None Recorded Payers Encounter Date Sequence Insurance Name Policy Number Policy Rogel Covered Member ID Rogel Member ID Guarantor Name 01/03/2025 [employer] [facility] - ALL PLANS - (MOVED-BILLED ) UNKNOWN Malgorzata Olivier [id number] Malgorzata Olivier
== END 2025-01-22 15:13 | disposition home or self-care (01) ==
LOC: CHSED 15:10
PROVIDERS: Emergency Provider Emergency Medicine
DX: S61.210A Laceration without foreign body of right index finger without damage to nail, initial encounter (principal); W29.3XXA Contact with powered garden and outdoor hand tools and machinery, initial encounter
CPT/HCPCS: 12001; 99282